=== PATIENT | male | born 1990 ===

== ENCOUNTER 2023-10-21 23:40 | Emergency (ER) | payer OTHER ==
[2023-10-21 23:48] VITALS: BP 149/81; PULSE 62; RESP 16; TEMP 98; BMI 27.7
== END 2023-10-22 00:24 | disposition home or self-care (01) ==
LOC: FER 23:40
DX: Z77.21 Contact with and (suspected) exposure to potentially hazardous body fluids (principal)
CPT/HCPCS: 99283-25